=== PATIENT | female | born 1930 | race Two or more races ===

== ENCOUNTER 2020-06-06 11:01 | Emergency (ER) | payer OTHER ==
[~2020-06-06] VITALS: Ht 162.6 cm; Wt 53.5 kg
[~2020-06-06 11:01] MED LIST: DILTIAZEM 24HR120 MG; GLIPIZIDE METFO PO; LIPITOR40 MG; LISINOPRIL20 MG PO; LOSARTAN POTASS50 MG PO; METFORMIN HCL1000 MG PO; PLAVIX75 MG; SYNTHROID50 MCG; SYNTHROID50 MCG PO; TRICOR145 MG PO; ZOCOR20 MG PO; ZOLOFT50 MG
[2020-06-06] MEDS ORDERED: SYNTHROID100 MCG PO (11:09)
[2020-06-06] MEDS ORDERED: DILTIAZEM 24HR180 MG (11:09)
[2020-06-06] MEDS ORDERED: ATACAND32 MG PO (11:10)
[2020-06-06] MEDS ORDERED: HYDRALAZINE HCL50 MG PO (11:10)
[2020-06-06] MEDS ORDERED: PEPCID AC20 MG PO (11:10)
[2020-06-06] MEDS ORDERED: SENTRA AM CAPS1 EACH (11:10)
[2020-06-06] MEDS ORDERED: DOXAZOSIN MESYLA4 MG PO (11:10)
[2020-06-06] MEDS ORDERED: ATORVASTATIN CA20 MG (11:11)
[2020-06-06] MEDS ORDERED: ATROVENT HFA12.9 GM IH (11:11)
[2020-06-06] MEDS ORDERED: VITAMIN C WITH500 MG PO (11:11)
[2020-06-06] MEDS ORDERED: LANTUS SOL100 UNIT/1 SQ (11:12)
== END 2020-06-06 17:47 | disposition home or self-care (01) ==
LOC: ER 11:01
DX: R53.83 Other fatigue (principal); R06.02 Shortness of breath; R53.1 Weakness; Z03.818 Encounter for observation for suspected exposure to other biological agents ruled out

== ENCOUNTER 2020-06-13 13:50 | Emergency (ER) | payer OTHER ==
[~2020-06-13] VITALS: Ht 160 cm; Wt 59.0 kg
[~2020-06-13 13:50] MED LIST changes: +ATACAND32 MG PO; +ATORVASTATIN CA20 MG; +ATROVENT HFA12.9 GM IH; +DILTIAZEM 24HR180 MG; +DOXAZOSIN MESYLA4 MG PO; +HYDRALAZINE HCL50 MG PO; +LANTUS SOL100 UNIT/1 SQ; +PEPCID AC20 MG PO; +SENTRA AM CAPS1 EACH; +SYNTHROID100 MCG PO; +VITAMIN C WITH500 MG PO
== END 2020-06-14 14:29 | disposition home or self-care (01) ==
LOC: ER 13:50
DX: E87.1 Hypo-osmolality and hyponatremia (principal); Z03.818 Encounter for observation for suspected exposure to other biological agents ruled out; R53.83 Other fatigue; R06.02 Shortness of breath; R53.1 Weakness